=== PATIENT | male | born 1965 | race Caucasian/White ===

== ENCOUNTER 2018-05-13 09:21 | Inpatient (IN) | payer BC ==
[2018-05-13] VITALS (12 sets, daily range): BP systolic 105–141; BP diastolic 68–96; Ht 177.8 cm; Wt 81.5 kg
[~2018-05-13] VITALS: Ht 177.8 cm; Wt 81.5 kg
--- NOTE | ~2018-05-13 | HEMODYNAMI ---
PATIENT:LYNN SANDOVAL [facility] MEDICAL RECORD: [id number] : 67 [facility] [place]: 05/13/18 Generatedon:05/13/201811:13 Patient name: LYNN SANDOVAL Patient #: [id number] SSN: : 1965 Date of study: 05/13/2018 Page: Of Hemodynamic Procedure Report Patient Data Patient Demographics Procedure consent was obtained First Name: LYNN Gender: Male Last Name: LORI : 1965 [facility] Initial: [facility] Age: 52 year(s) Patient #: [id number] Race: Additional ID: [id number] Contact details Address: [facility] [address] State: [place] City: [place] Zip code: [address] Admission Admission Data Admission Date: 05/13/2018 Admission Time: 10:08 Room #: [facility] Procedure Procedure Types Cath Procedure Diagnostic Procedure C Coronaries only Sedation Charges Moderate Sedation up to 15 minutes PCI Procedure AMI/SVG/BOOT AND SADDLE REPAIR PERSON PTCA or Stent SVG-BMS/JES Initial Procedure Description Procedure Date Procedure Date: 05/13/2018 Procedure Start Time: 10:34 Procedure End Time: 11:10 Procedure Staff Name Function Grabiel Wing MD Performing Physician Liv Rhodes RT Monitor Philly Elkins RT Scrub Brandon Sanchez RN Nurse Procedure Data Cath Procedure Fluoroscopy Diagnostic fluoroscopy Total fluoroscopy Time: 7.7 time: 7.7 min min Diagnostic fluoroscopy Total fluoroscopy dose: dose: 1557 mGy 1557 mGy Contrast Material Contrast Material Type Amount (ml) Isovue 300 129 Entry Location Entry Primary Successful Side Size Upsize Upsize Entry Closure Succes sful Closure Location (Fr) 1 (Fr) 2 (Fr) Remarks Device Remarks Femoral Right 6 Fr Exoseal artery Short Estimated blood loss: 10 ml Diagnostic catheters Device Type Used For End Catheter Placement MULTIPACK JL 4.0 5Fr Procedure catheter MULTIPACK 3DRC 5Fr Procedure catheter Procedure Complications No complications Procedure Medications Medication Administration Route Dosage Oxygen etCO2 Nasal cannula 2 l/min Lidocaine 2% added to field 20 Heparin Flush Bag added to field 2 bags (1000units/500ml NS) 0.9% NaCl I.V. 100 ml/hr Versed I.V. 1 mg Fentanyl I.V. 50 mcg Heparin Bolus I.V. 8500 units Nitroglycerin IC/IA I.C. 100 mcg Integrilin Drip I.V. drip 13.4 ml/hr (75mg/100ml) Hemodynamics Rest Heart Rate: 74 (bpm) Snapshots Pre Cath Intra NCS Post Cath Vital Signs Time Heart Resp SPO2 etCO2 NIBP (mmHg) Rhythm Pain Sedation Rate (ipm) (%) (mmHg) Status Level (bpm) 10:25:53 69 24 97 0 No Cuff NSR w/ ST 6 (11) 10(A) Elevation , Intense 10:30:05 75 18 100 31.7 142/94(114) NSR w/ ST 6 (11) 10(A) Elevation , Intense 10:34:17 96 26 91 27.2 155/110(140) NSR w/ ST 0 (11) 10(A) Elevation , No pain 10:38:35 97 23 93 25.6 162/108(135) NSR w/ ST 0 (11) 10(A) Elevation , No pain 10:42:55 102 11 94 26.4 161/114(130) NSR w/ ST 0 (11) 10(A) Elevation , No pain 10:47:15 105 13 93 26.4 151/108(135) NSR w/ ST 0 (11) 10(A) Elevation , No pain 10:53:30 99 13 93 24.9 136/93(119) NSR w/ ST 0 (11) 10(A) Elevation , No pain 10:57:42 100 12 93 24.1 133/86(113) NSR w/ ST 0 (11) 10(A) Elevation , No pain 11:01:50 93 14 93 33.2 128/90(109) NSR w/ ST 0 (11) 10(A) Elevation , No pain 11:05:56 90 15 98 20.4 131/98(114) NSR w/ ST 0 (11) 10(A) Elevation , No pain 11:08:00 98 20 97 33.2 136/89(117) NSR w/ ST 0 (11) 10(A) Elevation , No pain Medications Time Medication Route Dose Verified Delivered Reason Notes Effectiveness by by 10:29:00 Oxygen etCO2 2 Grabiel Buffie used for Nasal l/min Hamlet Sanchez RN procedure cannula 10:29:07 Lidocaine 2% added 20ml Grabiel Grabiel for local to vial Hamlet Wing MD anesthetic field 10:29:13 Heparin Flush added 2 Grabiel Grabiel used for Bag to bags Hamlet Wing MD procedure (1000units/500ml field NS) 10:29:20 0.9% NaCl I.V. 100 Grabiel Buffie Per physician ml/hr Hamlet Sanchez RN 10:33:23 Versed I.V. 1 mg Grabiel Buffie for sedation Hamlet Sanchez RN 10:33:29 Fentanyl I.V. 50 Grabiel Buffie for sedation mcg Hamlet Sanchez RN 10:42:36 Heparin Bolus I.V. 8500 Grabiel Buffie for verif ied units Hamlet Sanchez RN anticoagulation with dr wing 10:56:24 Nitroglycerin I.C. 100 Grabiel Grabiel for IC/IA mcg [place] Wing MD vasodilation 11:07:43 Integrilin Drip I.V. 13.4 Grabiel Buffie for Cr 1. 2 (75mg/100ml) drip ml/hr Hamlet Sanchez RN antiplatelet therapy Procedure Log Time Note 10:10:30 Informed consent obtained and on chart 10:12:33 Liv Rhodes RT(R) sent for patient. Start room use. 10:12:33 Time tracking: Regular hours (M-F 7:00 - 5:00) 10:12:44 Plan of Care:Hemodynamics will remain stable., Cardiac rhythm will remain stable., Comfort level will be maintained., Respiratory function will remain adequate., Patient/ family verbilizes understanding of procedure., Procedure tolerated without complication., Recovers from procedure without complications.. 10:21:29 Patient received from ED to CCL 2 Alert and oriented. Tansferred to table in Supine position. 10:21:31 Warm blankets applied, and nolberto hugger turned on for patient comfort. 10:21:31 Correct patient and procedure confirmed by team. 10:21:31 ECG and BP/O2 sat monitors applied to patient. 10:21:32 Vital chart was started 10:25:13 AMI PATIENT WAS FLOWN FROM PARRA, WAS GIVEN THROMBOLYTICS 10:26:53 TUBING High Pressure Extension Tubing (Hamlet) ([id number]) opened to sterile field. 10:26:54 INFLATOR Merit BasixCompak ([id number]) opened to sterile field. 10:27:09 ACIST Syringe (71657) opened to sterile field. 10:27:10 Bag Decanter (2002S) opened to sterile field. 10:27:11 Medline Cath Pack ([id number]) opened to sterile field. 10:27:13 DIAGNOSTIC WIRE .035 260cm J wire (955952) opened to sterile field. 10:27:16 ACIST Hand Control (01294) opened to sterile field. 10:27:17 ACIST Manifold (80826) opened to sterile field. 10:27:19 DIAGNOSTIC Multipack 5Fr catheter set (IA9468) opened to sterile field. 10:27:20 Tegaderm 4 x 4 (1626W) opened to sterile field. 10:27:48 SHEATH 6FR [place] (QGF119) opened to sterile field. 10:27:56 Baseline sample Acquired. 10:28:09 Rhythm: sinus rhythm , w/ ST elevation 10:28:13 Full Disclosure recording started 10:28:18 H&P Date Dictated: 05/13/2018 ER History on chart.. 10:28:20 Pre-procedure instructions explained to patient. 10:28:21 Pre-op teaching completed and patient verbalized understanding. 10:28:23 Family in waiting room. 10:28:37 Patient NPO since Breakfast. 10:29:00 Oxygen 2 l/min etCO2 Nasal cannula was administered by Brandon Sanchez RN; used for procedure; 10:29:03 Is the patient allergic to Iodine/contrast media? No. 10:29:07 Lidocaine 2% 20ml vial added to field was administered by Grabiel Wing MD; for local anesthetic; 10:29:13 Heparin Flush Bag (1000units/500ml NS) 2 bags added to field was administered by Grabiel Wing MD; used for procedure; 10:29:13 Is patient on blood thinner?Yes 10:29:19 ACC The patient was administered the following blood thiners within the last 24 hours: ACCAspirin, ACCPlavix 10:29:20 0.9% NaCl 100 ml/hr I.V. was administered by Brandon Sanchez RN; Per physician; 10:29:26 Patient diabetic? No. 10::33 ----Pre-sedation anethsthesia assessment.---- 10:29:35 Previous problem with sedation/anesthesia? No ? 10:29:37 Snore? Yes 10:29:39 Sleep apnea? No 10::40 Deviated septum? No 10::41 Opens mouth fully? Yes 10:29:42 Sticks out tongue? Yes 10:29:44 Airway obstruction? No ? 10:29:52 Dentures? No ? 10:30:22 Patient pain scale 5/10 ?. 10:30:42 IV patent on arrival in right forearm, left forearm with 0.9% NaCl at [facility]. 10:30:49 Right groin area was prepped with chlora-prep and draped in sterile fashion 10:31:35 Quick Combo opened to sterile field. 10:32:21 QUICK COMBOS PLACED AND ATTACHED TO DEFIBRILLATOR 10:32:32 Alarms reviewed by R. N. 10:32:32 Sharps counted by scrub and verified by R.N. 10:32:40 Physician arrived 10:32:41 --------ALL STOP TIME OUT------ 10:32:41 Final Timeout: patient, procedure, and site verified with staff and physician. All members of the team are in agreement. 10:32:43 Right groin site verified by team. 10:32:48 Physical assessment completed. ASA score P 2 - A patient with mild systemic disease as per Grabiel Wing MD. 10:32:52 Sedation plan: IV Moderate Sedation Medication:Versed, Fentanyl 10:33:04 Pre procedure: right dorsailis pedis pulse 1+ Palpable, but thready & weak; easily obliterated 10:33:17 Use device set Femoral Dx 10:33:23 Versed 1 mg I.V. was administered by Brandon Sanchez RN; for sedation; 10:33:29 Fentanyl 50 mcg I.V. was administered by Brandon Sanchez RN; for sedation; 10:33:35 BMW 300cm [place] 2 J wire ([id number]) opened to sterile field. 10:34:26 Procedure started. 10:34:34 Local anesthetic to right femoral artery with Lidocaine 2% by Grabiel Wing MD.INITIAL ACCESS ONLY 10:35:43 A 6 Fr Short sheath was inserted into the Right Femoral artery 10:36:14 Zero performed for pressure channel P1 10:36:55 A MULTIPACK JL 4.0 5Fr catheter was advanced over the wire and used for Procedure. 10:38:04 LCA angiography performed. 10:38:30 Catheter removed. 10:40:05 A MULTIPACK 3DRC 5Fr catheter was advanced over the wire and used for Procedure. 10:40:14 RCA angiography performed. 10:40:18 Catheter removed. 10:40:23 GUIDE 6FR XBLAD 3.5 catheter ([id number]) opened to sterile field. 10:40:36 Proceeding to intervention. 10:41:03 Study PCI Site: [place] pLAD has 100% stenosis. 10:41:11 6 Fr xblad 3.5 guide catheter was inserted over the wire 10:42:33 bmw wire advanced. 10:42:36 Heparin Bolus 8500 units I.V. was administered by Brandon Sanchez RN; for anticoagulation; verified with dr wing 10:44:26 Wire advanced across lesion. 10:49:15 Inflate balloon Inflation number: 1 A EMERGE OTW 2.0 x 15 balloon ([id number]) was prepped and advanced across the Prox LAD, then inflated to 14 MIN for 0:20 (min:sec). 10:49:42 Inflation number: 2 The EMERGE OTW 2.0 x 15 balloon ([id number]) was reinflated across the Prox LAD, to 14 MIN for 0:13 (min:sec). 10:50:56 Balloon removed over the wire. 10:51:34 The EUPHORA 2.5 x 15 Balloon ([id number]) was advanced and then removed because it was opened but not used 10:53:40 Place stent Inflation Number: 3 A CITLALI RX 3.0 x 38 stent ([id number]) was prepped and advanced across the Prox LAD. The stent was deployed at 12 MIN for 0:14 (min:sec). 10:56:24 Nitroglycerin IC/IA 100 mcg I.C. was administered by Grabiel Wing MD; for vasodilation; 10:59:23 Stent catheter was removed intact over wire. 10:59:25 Balloon re-inserted over wire. 11:01:03 Inflation number: 1 The EMERGE OTW 2.0 x 15 balloon ([id number]) was reinflated across the Dist LAD, to 6 MIN for 0:36 (min:sec). 11:01:14 Balloon removed over the wire. 11:02:27 Wire removed. 11:02:28 Guide catheter removed. 11:02:37 Sheath removed intact; hemostasis achieved with Exoseal to the Right Femoral artery. 11:02:47 EXOSEAL 6Fr (EX600) opened to sterile field. 11:02:52 Procedure ended.(Physican Out) 11:03:05 Fluoroscopy time 07.70 minutes. 11:03:11 Flurop Dose total: 1557 11:03:11 Fluoroscopy dose: 1557 mGy 11:03:17 Contrast amount:Isovue 300 129ml. 11:03:18 Sharps counted by scrub and verified by R.N. 11:03:20 Insertion/operative site no bleeding no hematoma. 11:05:16 Post-op/insertion site Right Femoral artery dressed using a 4 x 4 and Tegaderm. 11:05:17 Post Procedure Pulses reassessed and unchanged 11:05:22 Post-procedure physical assessment completed. ASA score P 2 - A patient with mild systemic disease as per Grabiel Wing MD. 11:05:27 Post procedure rhythm: sinus rhythm 11:05:31 Estimated blood loss: 10 ml 11:05:32 Post procedure instruction explained to patient.Patient verbalizes understanding. 11:06:11 Procedure type changed to Cath procedure, Diagnostic procedure, LHC, Coronaries only, Sedation Charges, Moderate Sedation up to 15 minutes, PCI procedure, AMI/SVG/BOOT AND SADDLE REPAIR PERSON PTCA or Stent, SVG-BMS/JES Initial 11:06:15 Procedure and supply charges have been captured, reviewed, submitted and are correct. 11:06:57 Procedure Complication : No complications 11:06:59 Vital chart was stopped 11:07:43 Integrilin Drip (75mg/100ml) 13.4 ml/hr I.V. drip was administered by Brandon Sanchez RN; for antiplatelet therapy; Cr 1.2 11:10:03 See physician's report for complete and final results. 11:10:07 Report given to Pre/Post Procedure Room. 11:10:10 Patient transfered to Pre/Post Procedure Room with Stretcher. 11:10:14 Procedure ended. 11:10:14 Full Disclosure recording stopped Intervention Summary Intervention Notes Time ActionType Lesion and Equipment Used Action# Pressure Duration Attributes 10:49:15 Inflate Prox LAD EMERGE OTW 2.0 1 14 00:20 balloon x 15 balloon ([id number]) 10:49:42 Reinflate Prox LAD EMERGE OTW 2.0 2 14 00:13 balloon x 15 balloon ([id number]) 10:51:34 Discard EUPHORA 2.5 x Balloon 15 Balloon ([id number]) 10:53:40 Place stent Prox LAD CITLALI RX 3.0 x 3 12 00:14 38 stent ([id number]) 11:01:03 Reinflate Dist LAD EMERGE OTW 2.0 1 6 00:36 balloon x 15 balloon ([id number]) Device Usage Item Name Manufacture Quantity Catalog Number Hospital Part Current M inimal Lot# / Charge Number Stock Stock Serial# Code TUBING High Merit 1 [id number] 14743 593994 1 0 Pressure Medical Extension Tubing (Wing) ([id number]) INFLATOR Merit Merit 1 [id number] 180411 761898 828149 1 5 SKY Network Technology ([id number]) ACIST Syringe Acist 1 19145 344476 164708 965038 2 0 (09624) Medical Systems Inc Bag Decanter Microtek 1 2001S 026079 74755 602676 5 (2001S) Medical Inc. Medline Cath Medline 1 [id number] 865258 18718 572547 5 Pack ([id number]) DIAGNOSTIC St [place] 1 307092 247500 107894 666516 3 0 WIRE .035 260cm J wire (005880) ACIST Hand Acist 1 69311 089604 661228 281585 5 Control Medical (37488) Systems Inc ACIST Manifold Acist 1 57310 835772 861926 219463 5 (24966) Medical Systems Inc DIAGNOSTIC Cardinal 1 [id number] 196176 73207 844065 3 0 Multipack 5Fr Health catheter set (YW1402) Tegaderm 4 x 4 3M 1 1626W 595608 094297 139910 5 (1626W) SHEATH 6FR Terumo 1 OHN872 218667 270468 229401 4 0 [place] (JTE677) [employer] 1 43371-488608 959401 301892 018140 5 BMW 300cm Cotter 1 [id number] 999695 741801 919566 5 [place] 2 J Vascular wire ([id number]) MULTIPACK JL Cardinal 1 475652 5 4.0 5Fr Health catheter MULTIPACK 3DRC Cardinal 1 233896 5 5Fr catheter Health GUIDE 6FR Cardinal 1 [id number] 281088 486408 677099 1 0 XBLAD 3.5 Health catheter ([id number]) EMERGE OTW 2.0 Joice 1 [id number] 626212 920301 347060 5 [id number] x 15 balloon Scientific ([id number]) EUPHORA 2.5 x Medtronic 1 [id number] 409228 372853 806870 5 [id number] 15 Balloon ([id number]) CITLALI RX 3.0 x Medtronic 1 [id number] 104581 9512983 964662 5 [id number] 38 stent ([id number]) EXOSEAL 6Fr Cardinal 1 EX600 678401 235173 128497 1 0 (EX600) Health Signature Audit [place] Stage Time Signature Unsigned Intra-Procedure 05/13/2018 Liv Rhodes 11:13:21 AM RT(R) Signatures Monitor : Liv Rhodes Signature : RT Date : Time : [facility] [address] [place] [address]
[2018-05-13 10:25] LABS: BASOPHILS 0.2 % (0-2); EOSINOPHILS 0.3 % (0-7); HEMATOCRIT 45.8 % (42.0-54.0); HEMOGLOBIN 16.1 g/dL (13.5-17.5); IMMATURE GRANULOCYTES 0.5 % (0-5); LYMPHOCYTES 16.5 % (15-50); MCH 29.6 pg (26.0-34.0); MCHC 35.2 g/dL (31.0-37.0); MCV 84.2 fL (80.0-100.0); MONOCYTES 5.8 % (2-11); NEUTROPHILS 76.7 % (40-80); PLATELET COUNT 228 10x3/uL (130-400); RBC 5.44 10x6/uL (4.20-6.10); RDW 12.7 % (11.5-14.5); WBC 11.1 10x3/uL (4.8-10.8)
[2018-05-13 10:35] LABS: CALC OSMOLALITY 281 mosm/kg (275-300); CALCIUM 8.8 mg/dL (8.5-10.1); CARBON DIOXIDE 25.2 mmol/L (21.0-32.0); CHLORIDE - SERUM 105 mmol/L (98-107); CREATININE - SERUM 1.1 mg/dL (0.6-1.3); GLUCOSE 118 mg/dL (74-106); POTASSIUM - SERUM 4.6 mmol/L (3.5-5.1); SODIUM 139 mmol/L (136-145); UREA NITROGEN 22 mg/dL (7-18); eGFR NON AFRICAN AMERICAN 75 mL/min (90-120)
[2018-05-14] VITALS (22 sets, daily range): BP systolic 84–122; BP diastolic 58–84
[2018-05-14 02:43] LABS: BASOPHILS 0.5 % (0-2); EOSINOPHILS 2.1 % (0-7); HEMATOCRIT 42.6 % (42.0-54.0); HEMOGLOBIN 14.4 g/dL (13.5-17.5); IMMATURE GRANULOCYTES 0.3 % (0-5); MCH 28.7 pg (26.0-34.0); MCHC 33.8 g/dL (31.0-37.0); MEAN PLATELET VOLUME 9.2 fL (7.4-10.4); MONOCYTES 9.7 % (2-11); NEUTROPHILS 61.4 % (40-80); PLATELET COUNT 207 10x3/uL (130-400); RBC 5.01 10x6/uL (4.20-6.10); RDW 12.8 % (11.5-14.5); WBC 8.9 10x3/uL (4.8-10.8)
[2018-05-14 02:46] LABS: CALC OSMOLALITY 271 mosm/kg (275-300); CALCIUM 8.1 mg/dL (8.5-10.1); CARBON DIOXIDE 26.2 mmol/L (21.0-32.0); CHLORIDE - SERUM 102 mmol/L (98-107); CREATININE - SERUM 1.1 mg/dL (0.6-1.3); GLUCOSE 143 mg/dL (74-106); SODIUM 134 mmol/L (136-145); UREA NITROGEN 17 mg/dL (7-18); eGFR NON AFRICAN AMERICAN 75 mL/min (90-120)
[2018-05-14 02:47] LABS: POTASSIUM - SERUM 3.7 mmol/L (3.5-5.1)
[2018-05-15] VITALS (7 sets, daily range): BP systolic 94–101; BP diastolic 66–75
[2018-05-15 05:26] LABS: LDL-HDL RATIO 3.4 ratio (1.5-3.5)
[2018-05-15] MEDS ORDERED: COREG 3.1253.125 MG PO (08:56)
[2018-05-15] MEDS ORDERED: PLAVIX75 MG PO (08:57)
== END 2018-05-15 09:26 | disposition home or self-care (01) | DRG 247 ==
LOC: D.ER 09:21 → D.ICU 10:08 → D.SDCHOLD 10:08 → D.CLR 11:24 → D.ICU 14:30
PROVIDERS: Family Medicine; Internal Medicine Cardiovascular Disease
PROC: B2151ZZ Fluoroscopy of Left Heart using Low Osmolar Contrast (ICD-10-PCS; 2018-05-13)
PROC: 4A023N7 Measurement of Cardiac Sampling and Pressure, Left Heart, Percutaneous Approach (ICD-10-PCS; 2018-05-13)
PROC: 027034Z Dilation of Coronary Artery, One Artery with Drug-eluting Intraluminal Device, Percutaneous Approach (ICD-10-PCS; principal; 2018-05-13 10:12)
PROC: B2111ZZ Fluoroscopy of Multiple Coronary Arteries using Low Osmolar Contrast (ICD-10-PCS; 2018-05-13 10:12)
DX: I21.09 ST elevation (STEMI) myocardial infarction involving other coronary artery of anterior wall (principal); I23.7 Postinfarction angina; Z72.0 Tobacco use; I95.1 Orthostatic hypotension

== ENCOUNTER → 2018-10-14 11:20 | Outpatient (CLI) | payer BC ==
[2018-05-13 15:05] VITALS: BMI 26.6
[~2018-10-14 11:20] MED LIST: BAYER CHEWABLE81 MG PO; COREG 3.1253.125 MG PO; LIPITOR20 MG PO; LISINOPRIL2.5 MG PO; PLAVIX75 MG PO
== END | disposition home or self-care (01) ==
LOC: D.HCCARDIO 11:20
PROVIDERS: ATTEND Internal Medicine Cardiovascular Disease
DX: I25.10 Atherosclerotic heart disease of native coronary artery without angina pectoris (principal)

== ENCOUNTER 2018-10-21 13:46 | Outpatient (CLI) | payer MEDICARE ==
[~2018-10-21] VITALS: Ht 177.8 cm; Wt 81.8 kg
--- NOTE | ~2018-10-21 | HEMODYNAMI ---
PATIENT:LYNN SANDOVAL [facility] MEDICAL RECORD: [id number] : 67 LOCATION:[facility] ADMISSION DATE: 10/21/18 Generatedon:10/21/201816:18 Patient name: LYNN SANDOVAL Patient #: [id number] SSN: : 1965 Date of study: 10/21/2018 Page: Of Hemodynamic Procedure Report Patient Data Patient Demographics Procedure consent was obtained First Name: LYNN Gender: Male Last Name: LORI : 1965 [facility] Initial: [facility] Age: 53 year(s) Patient #: [id number] Race: Additional ID: [id number] Contact details Address: [address] State: [place] City: [place] Zip code: [address] Past Medical History Allergies Allergen Reaction Date Comments Reported Other allergy 10/21/2018 phenergan Admission Admission Data Admission Date: 10/21/2018 Admission Time: 13:46 Lab Results Lab Result Date: 10/21/2018 Lab Result Time: 14:20 Biochemistry Name Units Result Min Max BUN mg/dl 18 --(---*)-- 7 18 Creatinine mg/dl 1.1 --(--*-)-- 0.6 1.3 CBC Name Units Result Min Max Hematocrit % 47.5 --(-*--)-- 42 54 Hemoglobin g/dl 16.7 --(---*)-- 13.5 17.5 Procedure Procedure Types Cath Procedure Diagnostic Procedure LHC LHC w/Coronaries Sedation Charges Moderate Sedation up to 15 minutes PCI Procedure Coronary Stent Coronary Stent Initial Procedure Description Procedure Date Procedure Date: 10/21/2018 Procedure Start Time: 15:54 Procedure End Time: 16:18 Procedure Staff Name Function Robe Colvin MD Performing Physician Ilia Khan RT Monitor Eve Mcgowan RT Scrub Brandon Sanchez RN Nurse Ricardo Foley RT Labor Relations Manager Akira Gay RN Nurse Procedure Data Cath Procedure Fluoroscopy Diagnostic fluoroscopy Total fluoroscopy Time: 5.5 time: 5.5 min min Diagnostic fluoroscopy Total fluoroscopy dose: 760 dose: 760 mGy mGy Contrast Material Contrast Material Type Amount (ml) Isovue 300 72 Entry Location Entry Primary Successful Side Size Upsize Upsize Entry Closure Brown ccessful Closure Location (Fr) 1 (Fr) 2 (Fr) Remarks Device Remarks Radial Right 6 Fr Mechanical artery Short Compression Estimated blood loss: 10 ml Diagnostic catheters Device Type Used For End Catheter Placement DIAGNOSTIC [place] 110cm 5 Procedure Fr catheter ([id number]) Procedure Complications No complications Procedure Medications Medication Administration Route Dosage 0.9% NaCl I.V. 100 ml/hr Oxygen etCO2 Nasal cannula 2 l/min Heparin Flush Bag added to field 2 bags (1000units/500ml NS) Lidocaine 2% added to field 20 Radial Cocktail added to field 1 syringe (Verapomil 2mg/Nitro 400mcg/Heparin 1500units) Versed I.V. 2 mg Fentanyl I.V. 100 mcg Radial Cocktail I.A. 1 syringe (Verapomil 2mg/Nitro 400mcg/Heparin 1500units) Heparin Bolus I.V. 5000 units Hemodynamics Rest HGB: 16.7 (g/dl) Heart Rate: 61 (bpm) Pressure Samples Time Site Value (mmHg) Purpose Heart Use Rate(bpm) 15:59 LV 93/7,9 Snapshot 47 15:59 AO 87/66(76) Pullback 85 15:59 LV 96/6,8 Pullback 85 Gradients Valve Time Site 1 Site 2 Mean SEP/DFP Peak To Heart Use (mmHg) (sec/min) Peak Rate (mmHg) (bpm) Aortic 15:59 LV AO 8 20 9 85 96/6,8 87/66(76) Calculations Valve P-P Mean Valve Index Valve Source Name Gradient Area Flow (cm2) Aortic 9 8 9 8 Snapshots Pre Cath Intra NCS Post Cath Vital Signs Time Heart Resp SPO2 etCO2 NIBP (mmHg) Rhythm Pain Sedation Rate (ipm) (%) (mmHg) Status Level (bpm) 15:33:15 62 14 100 26 122/80(96) NSR 0 (11) 10(A) , No pain 15:37:15 71 13 100 20 133/80(103) NSR 0 (11) 10(A) , No pain 15:41:19 65 13 100 29 133/83(95) NSR 0 (11) 10(A) , No pain 15:45:25 69 13 100 32.7 128/76(93) NSR 0 (11) 10(A) , No pain 15:49:28 68 14 100 33.5 112/76(88) NSR 0 (11) 10(A) , No pain 15:54:17 66 14 100 32 117/79(99) NSR 0 (11) 10(A) , No pain 15:58:17 71 11 100 23.7 115/76(87) NSR 0 (11) 9(A) , No pain 16:02:16 89 11 96 31.9 119/73(90) NSR 0 (11) 9(A) , No pain 16:06:18 76 13 98 29.7 131/73(90) NSR 0 (11) 10(A) , No pain 16:10:24 78 14 99 18.5 120/71(87) NSR 0 (11) 10(A) , No pain 16:14:28 75 13 100 34.2 118/69(98) NSR 0 (11) 10(A) , No pain Medications Time Medication Route Dose Verified Delivered Reason Not es Effectiveness by by 15:28:15 0.9% NaCl I.V. 100 Akira Akira Per physician ml/hr Deidra Gay RN RN 15:28:25 Oxygen etCO2 2 l/min Akira Akira for low 02 sats Nasal Lorigan Lorjazzy cannula RN RN 15:28:35 Heparin Flush added 2 bags Akira Akira used for Bag to Lorigan Deidra procedure (1000units/500ml [facility] DARNELL RN NS) 15:28:46 Lidocaine 2% added 20ml Akira Akira for local to vial Lorigan Lorigan anesthetic RN RN 15:28:58 Radial Cocktail added 1 Akira Akira used for (Verapomil to syringe Lorigan Lorigan procedure 2mg/Nitro field DARNELL RN 400mcg/Heparin 1500units) 15:53:54 Versed I.V. 2 mg Akira Akira for sedation Deidra Gay RN RN 15:54:02 Fentanyl I.V. 100 mcg Akira Akira for sedation Deidra Gay RN RN 15:57:23 Radial Cocktail I.A. 1 Akira Robe for (Verapomil syringe Lorigan Marii vasodilation 2mg/Nitro RN MD 400mcg/Heparin 1500units) 16:07:57 Heparin Bolus I.V. 5000 Akira Champion for units Deidra Gay anticoagulation RN it communications manager Log Time Note 15:15:52 Diagnostic Cath status Elective 15:15:53 Signed procedure consent form obtained from patient. 15:15:55 Ricardo Foley RT(R) sent for patient. Start room use. 15:15:56 Time tracking: Regular hours (M-F 7:00 - 5:00) 15:16:00 Plan of Care:Hemodynamics will remain stable., Cardiac rhythm will remain stable., Comfort level will be maintained., Respiratory function will remain adequate., Patient/ family verbilizes understanding of procedure., Procedure tolerated without complication., Recovers from procedure without complications.. 15:22:38 Patient received from ED to CCL 2 Alert and oriented. Tansferred to table in Supine position. 15:22:39 Warm blankets applied, and nolberto hugger turned on for patient comfort. 15:22:40 Correct patient and procedure confirmed by team. 15:22:41 ECG and BP/O2 sat monitors applied to patient. 15:28:15 0.9% NaCl 100 ml/hr I.V. was administered by Akira Gay RN; Per physician; 15:28:25 Oxygen 2 l/min etCO2 Nasal cannula was administered by Akira Gay RN; for low 02 sats; 15:28:35 Heparin Flush Bag (1000units/500ml NS) 2 bags added to field was administered by Akira Gay RN; used for procedure; 15:28:46 Lidocaine 2% 20ml vial added to field was administered by Akira Gay RN; for local anesthetic; 15:28:58 Radial Cocktail (Verapomil 2mg/Nitro 400mcg/Heparin 1500units) 1 syringe added to field was administered by Akira Gay RN; used for procedure; 15:32:07 Vital chart was started 15:32:08 Baseline sample Acquired. 15:32:11 Rhythm: sinus rhythm 15:32:12 Full Disclosure recording started 15:32:21 H&P Date Dictated: 10/21/2018 Within 30 days and on chart.. 15:32:22 Pre-procedure instructions explained to patient. 15:32:22 Pre-op teaching completed and patient verbalized understanding. 15:32:28 Family in waiting room. 15:32:31 Patient NPO since Breakfast. 15:33:10 Patient allergic to Other allergy phenergan 15:33:21 Is the patient allergic to Iodine/contrast media? No. 15:33:22 Is patient on blood thinner?Yes 15:33:24 ACC The patient was administered the following blood thiners within the last 24 hours: ACCPlavix 15:33:25 Patient diabetic? No. 15:33:27 Previous problem with sedation/anesthesia? No ? 15:33:28 Snore? Yes 15:33:29 Sleep apnea? No 15:33:29 Deviated septum? No 15:33:30 Opens mouth fully? Yes 15:33:30 Sticks out tongue? Yes 15:33:32 Airway obstruction? No ? 15:33:33 Dentures? No ? 15:33:35 Pre procedure: right dorsailis pedis pulse 2+ Normal; easily identifiable; not easily obliterated 15:33:37 Patient pain scale 0/10 ?. 15:33:39 Modified Giovanny's test Ulnar < 7 seconds 15:33:44 IV patent on arrival in left antecubital with 0.9% NaCl at [facility]. 15:34:31 Lab Result : Creatinine 1.1 mg/dl 15:34:31 Lab Result : BUN 18 mg/dl 15:34:31 Lab Result : Hemoglobin 16.7 g/dl 15:34:31 Lab Result : Hematocrit 47.5 % 15:34:33 Lab results completed and on chart. 15:34:35 Right Radial & Right Groin area was prepped with chlora-prep and draped in sterile fashion 15:34:36 Alarms reviewed by R. N. 15:34:36 Sharps counted by scrub and verified by R.N. 15:34:38 Use device set Radial Dx or PCI 15:34:39 ACIST Syringe (54615) opened to sterile field. 15:34:39 Medline Cath Pack ([id number]) opened to sterile field. 15:34:40 Bag Decanter () opened to sterile field. 15:34:40 ACIST Hand Control (94552) opened to sterile field. 15:34:41 ACIST Manifold (99804) opened to sterile field. 15:34:41 Tegaderm 4 x 4 (1626W) opened to sterile field. 15:34:42 MBrace Wrist Support ([id number]) opened to sterile field. 15:34:43 SHEATH 6FR Slender (47-9780) opened to sterile field. 15:34:44 DIAGNOSTIC WIRE .035 260cm J wire (499312) opened to sterile field. 15:43:23 Zero performed for pressure channel P1 15:52:40 Physician arrived 15::41 --------ALL STOP TIME OUT------ 15::41 Final Timeout: patient, procedure, and site verified with staff and physician. All members of the team are in agreement. 15:52:43 Right Radial & Right Groin site verified by team. 15:52:48 Maximum allowable Isovue 300 dose 300ml. Physician notified. (300ml for normal creatinines. For patients with creatinine of 1.7 or higher multiply weight(kg) x 5 divided by creatinine.) 15:52:51 Fire Safety Assessment: A--An alcohol-based skin anteseptic being used preoperatively., C--Open oxygen or nitrous oxide is being used., D--An ESU, laser, or fiber-optic light is being used. 15:52:54 Physical assessment completed. ASA score P 2 - A patient with mild systemic disease as per Robe Colvin MD. 15:52:57 Sedation plan: IV Moderate Sedation Medication:Versed, Fentanyl 15:53:54 Versed 2 mg I.V. was administered by Akira Gay RN; for sedation; 15:54:02 Fentanyl 100 mcg I.V. was administered by Akira Gay RN; for sedation; 15:54:47 Procedure started. 15:54:51 Local anesthetic to right radial artery with Lidocaine 2% by Robe Colvin MD.INITIAL ACCESS ONLY 15:54:58 A 6 Fr Short sheath was inserted into the Right Radial artery 15:57:23 Radial Cocktail (Verapomil 2mg/Nitro 400mcg/Heparin 1500units) 1 syringe I.A. was administered by Robe Colvin MD; for vasodilation; 15:57:41 A DIAGNOSTIC [place] 110cm 5 Fr catheter ([id number]) was advanced over the wire and used for Procedure. 15:59:28 LV gram done using DE LAP AZ 15:59:33 Injector settings: Ml/sec: 5, Volume: 15, 15:59:45 EF : 60 % 15:59:46 LV hemodynamics recorded. 16:00:00 RCA angiography performed. 16:01:00 Catheter exchanged over wire. 16:02:08 GUIDE 6FR EBU 3.5 catheter ([id number]) opened to sterile field. 16:02:24 6 Fr ebu 3.5 guide catheter was inserted over the wire 16:03:52 LCA angiography performed. 16:06:36 Catheter exchanged over wire. 16:06:47 INFLATOR Merit BasixCompak (GH5380) opened to sterile field. 16:07:21 WHISPER 300cm guide wire ([id number]) opened to sterile field. 16:07:28 GUIDE 6FR HS I catheter (LA6HSI) opened to sterile field. 16:07:39 6 Fr HS 1 guide catheter was inserted over the wire 16:07:57 Heparin Bolus 5000 units I.V. was administered by Akira Gay RN; for anticoagulation; 16:10:56 WHISPER wire advanced. 16:11:13 Wire advanced across lesion. 16:12:47 Place stent Inflation Number: 1 A CITLALI OTW 3.0 x 22 stent ([id number]) was prepped and advanced across the Prox RCA. The stent was deployed at 14 MIN for 0:45 (min:sec). 16:13:14 Stent catheter was removed intact over wire. 16:13:15 Wire removed. 16:13:15 Guide catheter removed. 16:13:21 TR BAND Standard ([id number]) opened to sterile field. 16:14:51 Sheath removed intact; hemostasis achieved with Mechanical Compression to the Right Radial artery. 16:15:03 Procedure ended.(Physican Out) 16:16:50 Fluoroscopy time 05.50 minutes. 16:16:53 Flurop Dose total: 760 16:16:53 Fluoroscopy dose: 760 mGy 16:17:05 Contrast amount:Isovue 300 72ml. 16:17:06 Sharps counted by scrub and verified by R.N. 16:17:09 TR band inflated with 12cc of air. 16:17:10 Insertion/operative site no bleeding no hematoma. 16:17:15 Post right radial artery:stable, soft, clean and dry 16:17:16 Post Procedure Pulses reassessed and unchanged 16:17:18 Post-procedure physical assessment completed. ASA score P 2 - A patient with mild systemic disease as per Robe Colvin MD. 16:17:20 Post procedure rhythm: unchanged. 16:17:24 Estimated blood loss: 10 ml 16:17:26 Post procedure instruction explained to patient.Patient verbalizes understanding. 16:17:26 Patient needs reinforcement of post procedure teaching. 16:17:37 Procedure type changed to Cath procedure, Diagnostic procedure, LHC, LHC w/Coronaries, Sedation Charges, Moderate Sedation up to 15 minutes, PCI procedure, Coronary Stent, Coronary Stent Initial 16:17:55 Procedure and supply charges have been captured, reviewed, submitted and are correct. 16:17:57 Procedure Complication : No complications 16:17:59 Vital chart was stopped 16:17:59 See physician's report for complete and final results. 16:18:00 Report given to Pre/Post Procedure Room. 16:18:02 Patient transfered to Pre/Post Procedure Room with Stretcher. 16:18:04 Procedure ended. 16:18:04 Full Disclosure recording stopped 16:18:09 End room use (Document Last) Intervention Summary Intervention Notes Time ActionType Lesion and Equipment Action# Pressure Duration Attributes Used 16:12:47 Place stent Prox RCA CITLALI OTW 3.0 1 14 00:45 x 22 stent ([id number]) Device Usage Item Name Manufacture Quantity Catalog Hospital Part Current Mini mal Lot# / Number Charge Number Stock Stock Serial# Code ACIST Syringe Acist 1 54168 678730 946776 183920 20 (94822) Medical Systems Inc Medline Cath Medline 1 [id number] 354538 71090 320938 5 Pack ([id number]) Bag Decanter Microtek 1 2001S 708786 98835 516202 5 () Medical Inc. ACIST Hand Acist 1 84725 488899 864562 138003 5 Control Medical (94715) Systems Inc ACIST Acist 1 25750 800357 190836 647238 5 Manifold Medical (75498) Systems Inc Tegaderm 4 x 3M 1 1626W 624350 514764 460337 5 4 (1626W) MBrace Wrist Advanced 1 140-0250-00 179021 29192 108068 5 Support Vascular ([id number]) Dynamics SHEATH 6FR Terumo 1 [id number] 938175 251417 170514 5 Slender (80-1060) DIAGNOSTIC St Salo 1 440991 751074 801378 068704 30 WIRE .035 260cm J wire (650307) DIAGNOSTIC Terumo 1 40-0583 526434 012647 747579 5 [place] 110cm 5 Fr catheter (332308) GUIDE 6FR EBU Medtronic 1 [id number] 876398 70364 469163 3 3.5 catheter (GU5TQS41) INFLATOR Merit 1 SH7291 857180 315142 832290 15 [facility] Medical BasixCompak (GZ6440) WHISPER 300cm Cotter 1 [id number] 985717 418677 371263 5 guide wire Vascular (1667005GY) GUIDE 6FR HS Medtronic 1 LA6HSI 435376 35320 440787 1 I catheter (LA6HSI) CITLALI OTW 3.0 Medtronic 1 [id number] 145412 0011671 193512 5 [id number] x 22 stent ([id number]) TR BAND Terumo 1 [id number] 095101 541948 656361 40 Standard ([id number]) Signature Audit Mclean Stage Time Signature Unsigned Intra-Procedure 10/21/2018 Ilia Khan 4:18:36 PM RT(R) Signatures Monitor : Ilia Khan RT Signature : Date : Time : [facility] [address] [facility] [place] [address]
[~2018-10-21 13:46] MED LIST changes: -BAYER CHEWABLE81 MG PO; -LIPITOR20 MG PO; -LISINOPRIL2.5 MG PO
[2018-10-21 13:50] VITALS: Ht 177.8 cm; Wt 81.8 kg
[2018-10-21] MEDS ORDERED: LISINOPRIL2.5 MG PO (13:54)
[2018-10-21] MEDS ORDERED: LIPITOR20 MG PO (13:55)
[2018-10-21] MEDS ORDERED: BAYER CHEWABLE81 MG PO (13:55)
[2018-10-21 14:47] LABS: ALBUMIN 4.1 g/dL (3.4-5.0); ALKALINE PHOSPHATASE 28 U/L (46-116); ALT (SGPT) 32 U/L (10-68); BILIRUBIN - TOTAL 0.98 mg/dL (0.2-1.3); CALC OSMOLALITY 277 mosm/kg (275-300); CALCIUM 9.5 mg/dL (8.5-10.1); CARBON DIOXIDE 30.3 mmol/L (21.0-32.0); CHLORIDE - SERUM 101 mmol/L (98-107); CREATININE - SERUM 1.1 mg/dL (0.6-1.3); POTASSIUM - SERUM 4.2 mmol/L (3.5-5.1); SODIUM 138 mmol/L (136-145); UREA NITROGEN 18 mg/dL (7-18); eGFR NON AFRICAN AMERICAN 75 mL/min (90-120)
[2018-10-21 14:52] LABS: BASOPHILS 0.8 % (0-2); EOSINOPHILS 3.1 % (0-7); GLUCOSE 94 mg/dL (74-106); HEMATOCRIT 47.5 % (42.0-54.0); HEMOGLOBIN 16.7 g/dL (13.5-17.5); IMMATURE GRANULOCYTES 0.4 % (0-5); LYMPHOCYTES 35.9 % (15-50); MCH 28.9 pg (26.0-34.0); MCHC 35.2 g/dL (31.0-37.0); MCV 82.3 fL (80.0-100.0); MEAN PLATELET VOLUME 9.1 fL (7.4-10.4); MONOCYTES 10.9 % (2-11); NEUTROPHILS 48.9 % (40-80); PLATELET COUNT 219 10x3/uL (130-400); RBC 5.77 10x6/uL (4.20-6.10); WBC 5.2 10x3/uL (4.8-10.8)
[2018-10-21 14:56] LABS: CREATINE KINASE 37 UL (21-232); MAGNESIUM - SERUM 2.2 mg/dL (1.8-2.4)
[2018-10-21 14:57] LABS: TROPONIN-I < 0.017 ng/mL (0.000-0.060)
[2018-10-21 15:25] LABS: APTT 24.5 SECONDS (22.8-39.4); INR 1.04 (0.85-1.17); PROTIME 13.1 SECONDS (11.6-15.0)
[2018-10-21 15:53] VITALS: BP 117/78
--- NOTE | 2018-10-21 16:40 | NUR ---
ROOM AIR, NO RESP DISTRESS. RIGHT WRIST TR BAND CDI, NO BLEEDING OR HEMATOMA NOTED. NO C/O PAIN OR NAUSEA. VSS. FAMILY AT BEDSIDE, CALL LIGHT WITHIN REACH.
--- NOTE | 2018-10-21 17:10 | NUR ---
SIPPING ON DRINK AND EATING SANDWICH WITH NO C/O NAUSEA. RIGHT WRIST TR BAND CDI, NO BLEEDING OR HEMATOMA NOTED. DENIES ANY NEEDS AT THIS TIME. VSS. WILL CONTINUE TO MONITOR.
--- NOTE | 2018-10-21 17:25 | NUR ---
RESTING QUIETLY WITH EYES CLOSED. RIGHT WRIST TR BAND CDI, NO BLEEDING OR HEMATOMA NOTED. DENIES ANY NEEDS. VSS. CALL LIGHT WITHIN REACH.
--- NOTE | 2018-10-21 17:55 | NUR ---
CONTINUES TO REST COMFORTABLY WITH NO C/O. RIGHT WRIST TR BAND CDI, NO BLEEDING OR HEMATOMA NOTED. DENIES ANY NEEDS. VSS. WILL CONTINUE TO MONITOR.
--- NOTE | 2018-10-21 18:30 | NUR ---
3CC OF AIR REMOVED FROM TR BAND WITH NO BLEEDING NOTED. VSS. NO NEEDS VOICED. WILL CONTINUE TO MONITOR.
--- NOTE | 2018-10-21 18:45 | NUR ---
3CC OF AIR REMOVED FROM TR BAND WITH NO BLEEDING NOTED.
--- NOTE | 2018-10-21 19:09 | NUR ---
2CC OF AIR REMOVED FROM TR BAND WITH NO BLEEDING NOTED. LEFT PIV D/C'D WITH CATHETER INTACT, BAND AID TO SITE. UP TO BEDSIDE TO GET DRESSED. AMBULATED TO RESTROOM.
--- NOTE | 2018-10-21 19:20 | NUR ---
REMAINING AIR REMOVED FROM TR BAND WITH NO BLEEDING NOTED. DRESSING PLACED TO SITE. DISCHARGE INSTRUCTIONS GIVEN TO PT AND . BOTH VERBALIZED UNDERSTANDING.
--- NOTE | 2018-10-21 19:35 | NUR ---
TAKEN OUT VIA WHEELCHAIR BY CATH ENGINEERING LAB TECHNICIAN. LEFT FACILITY WITH FAMILY AND ALL PERSONAL BELONGINGS.
--- NOTE | 2018-10-26 08:49 | HP ---
PATIENT: LYNN SANDOVAL [facility] MEDICAL RECORD: [id number] ACCOUNT: [id number] LOCATION:[place] : 67 ADMISSION DATE: 10/21/18 PCP: REGAN HOPKINS MD HISTORY AND PHYSICAL EXAMINATION HISTORY: A 53-year-old gentleman with history of coronary artery disease. Patient of Dr. Mcnulty. He was seen in [place] and transferred here with acute coronary syndrome. He has underlying disease and was actually scheduled for elective angiography in early October. However, given his acceleration in symptomology, he was transferred here for further evaluation. PAST MEDICAL HISTORY: Includes; 1. Hypertension. 2. Hyperlipidemia. 3. Coronary artery disease as described above. ALLERGIES: PHENERGAN. PHYSICAL EXAMINATION: GENERAL: Pleasant gentleman, in no acute distress. HEENT: Normocephalic and atraumatic. NECK: No JVD or bruit. HEART: Regular. LUNGS: Mcgowan are clear. ABDOMEN: Soft and nontender. EXTREMITIES: Pulse 2+ and equal. No edema. DIAGNOSTIC DATA: ECG shows nonspecific ST-T changes inferiorly. PLAN: Angiography and intervention on urgent basis. TRANSINT:[id number] Voice Confirmation ID: [id number] DOCUMENT ID: [id number] MARY THACKER MD at 0849 CC: [id number] DICTATION DATE: 10/21/18 1619 COFFEE URN ATTENDANT: 10/21/18 1708 DEP CLI 10/21/18 [place] [id number] [place] [id number]
--- NOTE | 2018-10-26 08:49 | OP ---
PATIENT NAME: LYNN SANDOVAL [facility] MEDICAL RECORD: [id number] :67 LOCATION:D.CAT ADMISSION DATE: SURGEON: MARY THACKER MD DATE OF OPERATION: 10/21/2018 PROCEDURES: Left heart catheterization, selective coronary angiography, right radial approach. CATHETERS: 5-Bolivian radial sheath, Raleigh catheter. The procedure was well tolerated. Proceed with PTCA and stenting the right coronary. FINDINGS: LEFT VENTRICULOGRAPHY: 30-degree DE LA PAZ view, normal wall motion and normal systolic function. CORONARY ANATOMY: LEFT MAIN: Left main is free of disease. LAD: An area of previous stenting is widely patent throughout its course. No evidence of restenosis. CIRCUMFLEX: Free of disease. RIGHT CORONARY ARTERY: Has about 80% stenosis, somewhat diffuse. Correlating nicely with nuclear study. PLAN: Intervention momentarily. DESCRIPTION OF PROCEDURE: Using indwelling sheath, a hockey stick guide catheter provided fair guide catheter support, followed by a 300 cm Whisper wire. Stent deployed was 3.0 x 12 mm Jackson drug-eluting stent up to 14 atmospheres for 45 seconds. Final angiography showed 80% stenosis, no significant residual. ELISE flow was 3 throughout the procedure. Heparin was used in the case. Sheath closed with TR band. TRANSINT:[id number] Voice Confirmation ID: [id number] DOCUMENT ID: [id number] MARY THACKER MD at 0849 CC: [id number] DICTATION DATE: 10/21/18 1620 SNIPPER: [id number] DEP CLI 10/21/18 [place] [id number] [place] [id number]
== END 2018-10-21 19:35 | disposition home or self-care (01) ==
LOC: D.CATH 13:46 → D.ER 13:46 → D.CATH 19:35 → EDSTATUS 19:40
PROVIDERS: ATTEND Emergency Medicine
DX: I25.119 Atherosclerotic heart disease of native coronary artery with unspecified angina pectoris (principal); I10 Essential (primary) hypertension; E78.5 Hyperlipidemia, unspecified; Z95.5 Presence of coronary angioplasty implant and graft; Z01.812 Encounter for preprocedural laboratory examination

== ENCOUNTER 2019-02-10 06:28 | Outpatient (CLI) | payer BC ==
[~2019-02-10] VITALS: Ht 175.3 cm; Wt 81.8 kg
--- NOTE | ~2019-02-10 | HEMODYNAMI ---
PATIENT:LNYN SANDOVAL [facility] MEDICAL RECORD: [id number] : 67 LOCATION:[facility] ADMISSION DATE: 02/10/19 Generatedon:02/10/20198:48 Patient name: LYNN SANDOVAL Patient #: [id number] : 1965 Date of study: 02/10/2019 Page: Of Hemodynamic Procedure Report Patient Data Patient Demographics Procedure consent was obtained First Name: LYNN Gender: Male Last Name: LORI : 1965 [facility] Initial: [facility] Age: 53 year(s) Patient #: [id number] Race: SSN: [id number] Additional ID: [id number] Contact details [address]: [address] [place] [address] State: [place] City: [place] Zip code: [address] Past Medical History Allergies Allergen Reaction Date Comments Reported Other allergy 10/21/2018 phenergan Other allergy 02/10/2019 pHENEGAN Admission Admission Data Admission Date: 02/10/2019 Admission Time: 6:28 Admit Source: Other Insurance Payor: Private health insurance [facility] #: [id number] Height (in.): 60 BSA: 1.79 (m2) Height (cm.): 152.4 BMI: 35.54 (kg/m2) Weight (lbs.): 182 Weight (kg.): 82.55 Lab Results Lab Result Date: 02/10/2019 Lab Result Time: 7:40 Biochemistry Name Units Result Min Max BUN mg/dl 16 --(---*)-- 7 18 Creatinine mg/dl 1.2 --(---*)-- 0.6 1.3 CBC Name Units Result Min Max Hematocrit % 46.1 --(-*--)-- 42 54 Hemoglobin g/dl 16.2 --(--*-)-- 13.5 17.5 Procedure Procedure Types Cath Procedure Diagnostic Procedure LHC LHC w/Coronaries Procedure Description Procedure Date Procedure Date: 02/10/2019 Procedure Start Time: 8:28 Procedure End Time: 8:47 Procedure Staff Name Function Grabiel Mcnulty MD Performing Physician Ilia Khan RT Scrub Mary Arreguin RT Scrub Brandon Sanchez RN Nurse Liv Rhodes RT Monitor Indication Angina CAD Procedure Data Cath Procedure Fluoroscopy Diagnostic fluoroscopy Total fluoroscopy Time: 2.8 time: 2.8 min min Diagnostic fluoroscopy Total fluoroscopy dose: 574 dose: 574 mGy mGy Contrast Material Contrast Material Type Amount (ml) Isovue 300 73 Entry Location Entry Primary Successful Side Size Upsize Upsize Entry Closure Succes sful Closure Location (Fr) 1 (Fr) 2 (Fr) Remarks Device Remarks Radial Right 6 Fr artery Short Estimated blood loss: 10 ml Diagnostic catheters Device Type Used For End Catheter Placement DIAGNOSTIC Kelso 110cm 5 Procedure Fr catheter ([id number]) Procedure Complications No complications Procedure Medications Medication Administration Route Dosage Oxygen etCO2 Nasal cannula 2 l/min Lidocaine 2% added to field 20 Heparin Flush Bag added to field 2 bags (1000units/500ml NS) 0.9% NaCl I.V. 100 ml/hr Versed I.V. 1 mg Fentanyl I.V. 50 mcg Versed I.V. 1 mg Versed I.V. 1 mg Fentanyl I.V. 50 mcg Radial Cocktail I.A. 1 syringe (Verapamil 2mg/Nitro 400mcg/Heparin 1500units) Hemodynamics Rest BSA: 1.79 (m2) HGB: 16.2 (g/dl) O2 Consumption: Estimated: 209.87 (ml/min) O2 Co nsumption indexed: Estimated:117.25 (ml/min/m) Heart Rate: 65 (bpm) Pressure Samples Time Site Value (mmHg) Purpose Heart Use Rate(bpm) 8:29 LV 117/-1,10 Snapshot 65 Gradients Valve Time Site Site Mean SEP/DFP Peak To Heart Use 1 2 (mmHg) (sec/min) Peak Rate (mmHg) (bpm) Aortic 8:30 LV AO 77 Snapshots Pre Cath Intra NCS Post Cath Vital Signs Time Heart Resp SPO2 etCO2 NIBP Rhythm Pain Sedation Rate (ipm) (%) (mmHg) (mmHg) Status Level (bpm) 8:11:52 65 32 94 43.5 121/80(94) NSR 0 (11) 10(A) , No pain 8:16:06 54 12 96 42 123/72(90) NSR 0 (11) 10(A) , No pain 8:20:17 62 13 98 40.5 124/78(95) NSR 0 (11) 10(A) , No pain 8:24:28 75 15 98 9 116/83(98) NSR 0 (11) 10(A) , No pain 8:28:46 77 12 98 36 109/59(75) NSR 0 (11) 9(A) , No pain 8:32:56 79 11 93 15.7 115/69(91) NSR 0 (11) 9(A) , No pain 8:37:10 82 12 93 9.7 118/69(96) NSR 0 (11) 9(A) , No pain 8:41:28 69 19 94 27 105/63(86) NSR 0 (11) 10(A) , No pain Medications Time Medication Route Dose Verified Delivered Reason Notes Effectiveness by by 8:10:24 Oxygen etCO2 2 l/min Grabiel Buffie used for Nasal Hamlet Sanchez RN procedure cannula 8:10:32 Lidocaine 2% added 20ml Grabiel Grabiel for local to vial aHmlet Mcnulyt MD anesthetic field 8:10:39 Heparin Flush added 2 bags Grabiel Grabiel used for Bag to Hamlet Mcnulty MD procedure (1000units/500ml field NS) 8:10:47 0.9% NaCl I.V. 100 Grabiel Buffie Per ml/hr Hamlet Sanchez RN physician 8:15:57 Versed I.V. 1 mg Grabiel Buffie for sedation Hamlet Sanchez RN 8:16:03 Fentanyl I.V. 50 mcg Grabiel Buffie for sedation Hamlet Sanchez RN 8:20:01 Versed I.V. 1 mg Grabiel Buffie for sedation Hamlet Sanchez RN 8:28:46 Versed I.V. 1 mg Grabiel Buffie for sedation Hamlet Sanchez RN 8:28:50 Fentanyl I.V. 50 mcg Grabiel Buffie for sedation Hamlet Sanchez RN 8:31:54 Radial Cocktail I.A. 1 Grabiel Grabiel for (Verapamil syringe Hamlet Mcnulty MD vasodilation 2mg/Nitro 400mcg/Heparin 1500units) Procedure Log Time Note 7:40:19 Brandon Sanchez RN sent for patient. Start room use. 7:41:23 Informed consent obtained and on chart 7:41:57 Diagnostic Cath Status : Elective 7:43:13 Insurance Payor : Private health insurance 7:43:49 Admit Source: Other 7:43:57 Patient Height : 60 inches 7:44:02 Patient Weight : 182 lbs 7:44:11 Indication : Angina 7:44:23 Indication : CAD 7:44:35 ACC Patient presents with Unstable Angina CCS Anginal Class 4--Inability to carry out any physical activity w/o angina. Angina may occur at rest. 7:46:11 ACCPatient has been prescribed/administered the following anti-anginal medication within the last 2 weeks: Beta Yoel, Long-Acting Nitrates 7:46:17 Procedure Status Elective Heart Cath (OP). 7:47:00 H&P Date Dictated: 02/04/2019 Within 30 days and on chart., H&P Addendum completed by physician on day of procedure. (MUST COMPLETE FOR ALL OUTPATIENTS). 7:54:30 Time tracking: Regular hours (M-F 7:00 - 5:00) 7:54:35 Plan of Care:Hemodynamics will remain stable., Cardiac rhythm will remain stable., Comfort level will be maintained., Respiratory function will remain adequate., Patient/ family verbilizes understanding of procedure., Procedure tolerated without complication., Recovers from procedure without complications.. 7:54:51 Patient received from Pre/Post Procedure Room to CCL 1 Alert and oriented. Tansferred to table in Supine position. 7:54:53 Warm blankets applied, and nolberto hugger turned on for patient comfort. 7:54:53 Correct patient and procedure confirmed by team. 7:54:54 ECG and BP/O2 sat monitors applied to patient. 7:54:55 Pre-procedure instructions explained to patient. 7:54:55 Pre-op teaching completed and patient verbalized understanding. 7:54:56 Family in waiting room. 7:54:59 Patient NPO since Midnight. 7:55:40 Patient allergic to Other allergypHENEGAN 8:10:24 Oxygen 2 l/min etCO2 Nasal cannula was administered by Brandon Sanchez RN; used for procedure; 8:10:32 Lidocaine 2% 20ml vial added to field was administered by Grabiel Mcnulty MD; for local anesthetic; 8:10:39 Heparin Flush Bag (1000units/500ml NS) 2 bags added to field was administered by Grabiel Mcnulty MD; used for procedure; 8:10:47 0.9% NaCl 100 ml/hr I.V. was administered by Brandon Sanchez RN; Per physician; 8:10:50 Vital chart was started 8:12:28 Baseline sample Acquired. 8:12:30 Rhythm: sinus rhythm 8:12:37 Full Disclosure recording started 8:12:40 Is the patient allergic to Iodine/contrast media? No. 8:12:41 Is patient on blood thinner?Yes 8:12:55 ACC The patient was administered the following blood thiners within the last 24 hours: ACCAspirin, ACCPlavix 8:12:57 Patient diabetic? No. 8:12:59 Previous problem with sedation/anesthesia? No ? 8:13:00 Snore? Yes 8:13:01 Sleep apnea? No 8:13:02 Deviated septum? No 8:13:02 Opens mouth fully? Yes 8:13:03 Sticks out tongue? Yes 8:13:04 Airway obstruction? No ? 8:13:06 Dentures? No ? 8:13:10 Pre procedure: right dorsailis pedis pulse 2+ Normal; easily identifiable; not easily obliterated 8:13:11 Modified Giovanny's test Ulnar < 7 seconds 8:13:13 Patient pain scale 0/10 ?. 8:13:18 IV patent on arrival in left forearm with 0.9% NaCl at [facility]. 8:14:41 Lab Result : BUN 16 mg/dl 8:14:41 Lab Result : Hemoglobin 16.2 g/dl 8:14:41 Lab Result : Creatinine 1.2 mg/dl 8:14:41 Lab Result : Hematocrit 46.1 % 8:14:43 Lab results completed and on chart. 8:14:45 Right Radial & Right Groin area was prepped with chlora-prep and draped in sterile fashion 8:14:46 Alarms reviewed by R. N. 8:14:47 Sharps counted by scrub and verified by R.N. 8:14:49 Use device set Radial Dx or PCI 8:14:51 ACIST Syringe (52822) opened to sterile field. 8:14:51 Medline Cath Pack ([id number]) opened to sterile field. 8:14:51 Bag Decanter (2001S) opened to sterile field. 8:14:52 ACIST Hand Control (52688) opened to sterile field. 8:14:52 ACIST Manifold (95555) opened to sterile field. 8:14:52 Tegaderm 4 x 4 (1626W) opened to sterile field. 8:14:53 MBrace Wrist Support ([id number]) opened to sterile field. 8:14:55 SHEATH 6FR RAIN ([id number]) opened to sterile field. 8:14:55 EMERALD Guide Wire (457-140) opened to sterile field. 8:14:59 NEEDLE Cook 21G 4cm Radial ([id number]) opened to sterile field. 8:15:06 Physician arrived 8:15:06 --------ALL STOP TIME OUT------ 8:15:07 Final Timeout: patient, procedure, and site verified with staff and physician. All members of the team are in agreement. 8:15:08 Right Radial & Right Groin site verified by team. 8:15:11 Fire Safety Assessment: A--An alcohol-based skin anteseptic being used preoperatively., C--Open oxygen or nitrous oxide is being used., D--An ESU, laser, or fiber-optic light is being used. 8:15:14 Physical assessment completed. ASA score P 2 - A patient with mild systemic disease as per Grabiel Mcnulty MD. 8:15:19 2) 60-89 Mildly reduced kidney function, and other findings (as for stage 1) point to kidney disease. 8:15:37 Maximum allowable contrast dose (3.7 X eGFR X 0.75)186 ml. 8:15:41 Sedation plan: IV Moderate Sedation Medication:Versed, Fentanyl 8:15:57 Versed 1 mg I.V. was administered by Brandon Sanchez RN; for sedation; 8:16:03 Fentanyl 50 mcg I.V. was administered by Brandon Sanchez RN; for sedation; 8:20:01 Versed 1 mg I.V. was administered by Brandon Sanchez RN; for sedation; 8:27:24 Zero performed for pressure channel P1 8:27:46 Procedure started. 8:28:10 A 6 Fr Short sheath was inserted into the Right Radial artery 8:28:24 Local anesthetic to right radial artery with Lidocaine 2% by Grabiel Mcnulty MD.INITIAL ACCESS ONLY 8:28:46 Versed 1 mg I.V. was administered by Brandon Sanchez RN; for sedation; 8:28:50 Fentanyl 50 mcg I.V. was administered by Brandon Sanchez RN; for sedation; 8:29:14 j wire advanced. 8:30:08 A DIAGNOSTIC Kelso 110cm 5 Fr catheter ([id number]) was advanced over the wire and used for Procedure. 8:30:15 EF : 55 % 8:30:58 LV hemodynamics recorded. 8:31:02 LV angiography performed. 8:31:07 LCA angiography performed. 8:31:54 Radial Cocktail (Verapamil 2mg/Nitro 400mcg/Heparin 1500units) 1 syringe I.A. was administered by Grabiel Mcnulty MD; for vasodilation; 8:35:00 RCA angiography performed. 8:37:33 Catheter removed. 8:37:39 TR BAND Standard ([id number]) opened to sterile field. 8:40:23 Procedure ended.(Physican Out) 8:40:34 Fluoroscopy time 02.80 minutes. 8:40:40 Flurop Dose total: 574 8:40:40 Fluoroscopy dose: 574 mGy 8:40:47 Dose Area Product 20011 mGy/cm. 8:40:52 Contrast amount:Isovue 300 73ml. 8:40:57 Maximum allowable dose exceeded? No. 8:40:58 Sharps counted by scrub and verified by R.N. 8:43:15 TR band inflated with 10cc of air. 8:43:21 Insertion/operative site no bleeding no hematoma. 8:43:26 Post-op/insertion site Right Radial artery dressed using a 4 x 4 and Tegaderm. 8:43:32 Post procedure rhythm: unchanged. 8:43:35 Estimated blood loss: 10 ml 8:43:38 Post procedure instruction explained to patient.Patient verbalizes understanding. 8:43:46 Patient needs reinforcement of post procedure teaching. 8:43:57 Procedure and supply charges have been captured, reviewed, submitted and are correct. 8:44:27 Procedure Complication : No complications 8:44:30 Vital chart was stopped 8:44:31 See physician's report for complete and final results. 8:45:43 Report given to Pre/Post Procedure Room. 8:47:09 Patient transfered to Pre/Post Procedure Room with Stretcher. 8:47:12 Procedure ended. 8:47:12 Full Disclosure recording stopped 8:47:17 End room use (Document Last) Device Usage Item Name Manufacture Quantity Catalog Hospital Part Current Minima l Lot# / Number Charge Number Stock Stock Serial# Code ACIST Acist 1 16719 600893 146129 [id number] 20 Syringe Medical (68346) Systems Inc Medline Medline 1 [id number] 403723 92821 923907 5 Cath Pack ([id number]) Bag Microtek 1 2001S 144348 34422 501565 5 Decanter Medical Inc. () ACIST Hand Acist 1 46679 131003 217548 587204 5 Control Medical (70301) Systems Inc ACIST Acist 1 53261 540397 623225 195320 5 Manifold Medical (17980) Systems Inc Tegaderm 4 3M 1 1626W 688053 632383 154588 5 x 4 (1626W) MBrace Advanced 1 140-0250-00 740176 83859 084029 5 Wrist Vascular Support Dynamics ([id number]) SHEATH 6FR Cardinal 1 [id number] 325328 8836970 200153 5 RAIN Health (6153847) EMERALD Cardinal 1 502-020 466283 715274 873463 5 Guide Wire Health (724-542) NEEDLE [facility] 1 P86179 810596 007547 838777 5 21G 4cm Radial (Q98123) DIAGNOSTIC Terumo 1 40-8333 080926 835857 890206 5 Kelso 110cm 5 Fr catheter (290046) TR BAND Terumo 1 [id number] 547558 612563 525585 40 Standard ([id number]) Signature Audit [place] Stage Time Signature Unsigned Intra-Procedure 02/10/2019 Liv Rhodes 8:48:31 AM RT(R) Signatures Performing Physician : Signature : Grabiel Mcnulty MD Date : Time : Nurse : Buffie Sanchez RN Signature : Date : Time : Monitor : Liv Carmelo Signature : RT Date : Time : [address] [place] [address]
[~2019-02-10 06:28] MED LIST changes: +BAYER CHEWABLE81 MG PO; +LIPITOR20 MG PO; +LISINOPRIL2.5 MG PO
[2019-02-10 07:09] VITALS: BP 138/86; Ht 175.3 cm; Wt 81.8 kg
[2019-02-10 07:23] LABS: BASOPHILS 0.6 % (0-2); EOSINOPHILS 3.8 % (0-7); HEMATOCRIT 46.1 % (42.0-54.0); HEMOGLOBIN 16.2 g/dL (13.5-17.5); IMMATURE GRANULOCYTES 0.6 % (0-5); LYMPHOCYTES 38.7 % (15-50); MCH 29.3 pg (26.0-34.0); MCHC 35.1 g/dL (31.0-37.0); MCV 83.4 fL (80.0-100.0); MEAN PLATELET VOLUME 8.9 fL (7.4-10.4); MONOCYTES 11.5 % (2-11); NEUTROPHILS 44.8 % (40-80); PLATELET COUNT 205 10x3/uL (130-400); RBC 5.53 10x6/uL (4.20-6.10); WBC 6.9 10x3/uL (4.8-10.8)
[2019-02-10 07:58] LABS: ANION GAP 10.6 mmol/L (8-16); CARBON DIOXIDE 27.8 mmol/L (21.0-32.0); CHOL - HDL RATIO 4.1 ratio (2.3-4.9); CREATININE - SERUM 1.2 mg/dL (0.6-1.3); LDL-HDL RATIO 2.6 ratio (1.5-3.5); POTASSIUM - SERUM 4.4 mmol/L (3.5-5.1)
--- NOTE | 2019-02-10 08:55 | NUR ---
PATIENT ARRIVED TO ROOM 6, PRESENT IN ROOM. PATIENT PLACED ON CM, VSS. RIGHT TR BAND IN PLACE IS CDI, NO S/S OF BLEEDING OR HEMATOMA.
--- NOTE | 2019-02-10 09:10 | NUR ---
PHYSICIAN AT BEDSIDE TO UPDATE PATIENT AND FAMILY. VSS ON ROOM AIR. RIGHT TR BAND IN PLACE, NO S/S OF BLEEDING OR HEMATOMA. NO C/O PAIN, NUMBNESS, OR TINGLING. NO N/V. TOLERATING PO FLUIDS.
--- NOTE | 2019-02-10 09:40 | NUR ---
BEGIN AIR REMOVAL PROTOCOL FOR TR BAND, 3CC OF AIR REMOVED. NO S/S OF BLEEDING OR HEMATOMA. NO C/O PAIN, NUMBNESS, OR TINGLING. VSS ON ROOM AIR. NO N/V.
--- NOTE | 2019-02-10 10:10 | NUR ---
PATIENT AWAKE, PRESENT AT BEDSIDE. VSS ON ROOM AIR. RIGHT TR BAND IN PLACE, 3CC OF AIR REMOVED. NO S/S OF BLEEDING OR HEMATOMA.
--- NOTE | 2019-02-10 10:41 | NUR ---
REMAINING AIR REMOVED FROM TR BAND, NO S/S OF BLEEDING OR HEMATOMA. IV REMOVED. DRESSING APPLIED TO RIGHT RADIAL SITE. NO C/O PAIN, NUMBNESS, OR TINGLING. NO N/V. VSS ON CM.
--- NOTE | 2019-02-10 10:50 | NUR ---
WRITTEN AND VERBAL DISCHARGE INSTRUCTIONS GIVEN TO PATIENT AND SPOUSE, BOTH VOICE UNDERSTANDING. PATIENT VOIDED WITHOUT DIFFICULTY. RIGHT RADIAL DRESSING IS CDI, NO S/S OF BLEEDING OR HEMATOMA. PATIENT TRANSPORTED VIA WHEELCHAIR TO CAR WITH SPOUSE DRIVING.
== END 2019-02-10 10:50 ==
LOC: D.CATH 06:28
PROVIDERS: ATTEND Internal Medicine Cardiovascular Disease
DX: I25.110 Atherosclerotic heart disease of native coronary artery with unstable angina pectoris (principal); Z95.5 Presence of coronary angioplasty implant and graft; Z01.812 Encounter for preprocedural laboratory examination